=== PATIENT | male | born 1955 | race African-American/Black ===

== ENCOUNTER 2016-07-28 17:23 | Emergency (ER) | payer SELFPAY ==
[2016-07-28 18:02] VITALS: BP 150/94
== END 2016-07-29 01:29 | disposition left against medical advice (07) ==
LOC: ER 17:23
DX: Z53.21 Procedure and treatment not carried out due to patient leaving prior to being seen by health care provider (principal)

== ENCOUNTER 2016-08-08 11:04 | Emergency (ER) | payer SELFPAY ==
--- NOTE | 2016-08-08 12:13 | ER Document Report ---
ED Medical Screen (RME) - General Stated Complaint: MOUTH PAIN Notes: Patient reports right lower tooth broke off at the gumline about 2 days ago has pain and swelling to the area. He is also here because his blood pressure has been high, and he has been out of his medications for 2 weeks. No CP or SOB. Patient states he takes lisinopril 20 mg daily. I have greeted and performed a rapid initial assessment of this patient. A comprehensive ED assessment and evaluation of the patient, analysis of test results and completion of the medical decision making process will be conducted by additional ED providers. TRAVEL OUTSIDE OF THE [place] IN LAST 30 DAYS: No - Related Data Allergies/Adverse Reactions: No Known Allergies Allergy (Verified 05/12/16 09:06) Past Medical History - Past Medical History Cardiac Medical History: Reports: Hx Hypertension - Immunizations Immunizations up to date: Yes Hx Diphtheria, Pertussis, Tetanus Vaccination: Yes - 2011 Physical Exam - Vital signs Vitals: Temp Pulse Resp BP Pulse Ox 97.7 F 58 L 16 171/87 H 97 08/08/16 11:09 08/08/16 11:09 08/08/16 11:09 08/08/16 11:08/08/16 11:09 - HEENT Teeth diagram: 1 - broken tooth, + swelling to gums Notes: Patient has poor dentition with multiple teeth missing. Course - Vital Signs Vital signs: Temp Pulse Resp BP Pulse Ox 97.7 F 58 L 16 171/87 H 97 08/08/16 11:09 08/08/16 11:09 08/08/16 11:08/08/16 11:08/08/16 11:09
[2016-08-08] MEDS ORDERED: OXYCODONE-ACETAMINOPHEN 5-325 MG TABLET PO ONE (13:08)
[2016-08-08] MEDS ORDERED: PENICILLIN V POTASSIUM 500 MG TABLET PO ONE (13:08)
--- NOTE | 2016-08-08 13:11 | ER Document Report ---
HPI - HPI Patient complains to provider of: dental pain Onset: Other - 2 days Onset/Duration: Persistent Quality of pain: Achy Pain Level: 5 Context: Patient complains of dental pain to right lower jaw for the past 2 days. Patient states he had swelling and he took a needle and punctured an abscess yesterday which have a lot of purulent drainage. Patient denies any fever or facial swelling. Patient states he does have a dental appointment in 2 weeks. Patient additionally states that he is out of his blood pressure medicine for the past 2 weeks but does see a primary doctor the [facility]. Patient denies any chest pain, shortness of breath, urinary symptoms or visual problems. Associated Symptoms: Other - Dental pain. denies: Chest pain, Nonproductive cough, Productive cough, Nausea, Vomiting, Shortness of breath Exacerbated by: Denies Relieved by: Denies Similar symptoms previously: Yes Recently seen / treated by doctor: No - ROS ROS below otherwise negative: Yes Systems Reviewed and Negative: Yes All other systems reviewed and negative - CONSTITUTIONAL Constitutional: DENIES: Fever, Chills - EENT Notes: Dental pain - NEURO Neurology: DENIES: Headache, Weakness - CARDIOVASCULAR Cardiovascular: DENIES: Chest pain - RESPIRATORY Respiratory: DENIES: Trouble Breathing, Coughing - GASTROINTESTINAL Gastrointestinal: DENIES: Nausea, Patient vomiting - REPRODUCTIVE Reproductive: DENIES: : - MUSCULOSKELETAL Musculoskeletal: DENIES: Back Pain, Neck Pain - DERM Skin Color: Normal Skin Problems: None Past Medical History - General Information source: Patient - Social History Smoking Status: Current Every Day Smoker Chew tobacco use (# tins/day): No Frequency of alcohol use: Occasional Drug Abuse: Marijuana Occupation: none Family History: Hypertension Patient has suicidal ideation: No Patient has homicidal ideation: No - Past Medical History Cardiac Medical History: Reports: Hx Hypertension Renal/ Medical History: Denies: Hx Peritoneal Dialysis Surgical Hx: Negative - Immunizations Immunizations up to date: Yes Hx Diphtheria, Pertussis, Tetanus Vaccination: Yes - 2011 Hx Pneumococcal Vaccination: 03/29/13 Vertical Provider Document - CONSTITUTIONAL Agree With Documented VS: Yes Exam Limitations: No Limitations General Appearance: WD/WN, No Apparent Distress - INFECTION CONTROL TRAVEL OUTSIDE OF THE [place] IN LAST 30 DAYS: No - HEENT HEENT: Atraumatic, Normocephalic. negative: Pharyngeal Exudate, Pharyngeal Tenderness, Pharyngeal Erythema, Tympanic Membrane Red, Tympanic Membrane Bulging Mouth Diagram: 1 - Dental decay, tenderness, mild bleeding from around gingiva, no sublingual or submental swelling - NECK Neck: Normal Inspection, Supple. negative: Lymphadenopathy-Left, Lymphadenopathy-Right - RESPIRATORY Respiratory: Breath Sounds Normal, No Respiratory Distress, Chest Non-Tender O2 Sat by Pulse Oximetry: 97 - CARDIOVASCULAR Cardiovascular: Regular Rate, Regular Rhythm, No Murmur - BACK Back: Normal Inspection - MUSCULOSKELETAL/EXTREMETIES Musculoskeletal/Extremeties: MAEW - NEURO Level of Consciousness: Awake, Alert, Appropriate - DERM Integumentary: Warm, Dry, No Rash Course - Vital Signs Vital signs: Temp Pulse Resp BP Pulse Ox 97.7 F 58 L 16 171/87 H 97 08/08/16 11:09 08/08/16 11:09 08/08/16 11:09 08/08/16 11:09 08/08/16 11:09 Discharge - Discharge Clinical Impression: Dental caries, Toothache HTN (hypertension) Qualifiers: Hypertension type: essential hypertension Qualified Code(s): I10 - Essential ( primary) hypertension Condition: Stable Disposition: HOME, SELF-CARE Instructions: Penicillin V K ([facility]), Oral Narcotic Medication ([facility]), Toothache ( [facility]), Dentist, Dental Infection or Abscess ([facility]), High Blood Pressure ([facility]) Additional Instructions: Return immediately for any new or worsening symptoms Followup with your primary care provider, call tomorrow to make a followup appointment. Your primary doctor can refill your blood pressure medications Follow-up with your dentist for further evaluation. Prescriptions: Lisinopril [Prinivil] 20 mg PO DAILY #15 tablet Oxycodone HCl/Acetaminophen [Percocet 5-325 mg Tablet] 1 tab PO ASDIR PRN #15 tablet PRN Reason: Penicillin V Potassium [Penicillin Vk 500 mg Tablet] 500 mg PO BID #20 tablet Forms: Elevated Blood Pressure Referrals: [facility] [Provider Group] - Follow up in 3-5 days [facility] [Provider Group] - Follow up in 3-5 days
[2016-08-08 13:22] VITALS: BP 152/89
== END 2016-08-08 13:32 | disposition home or self-care (01) ==
LOC: ER 11:04
DX: K02.9 Dental caries, unspecified (principal); K08.89 Other specified disorders of teeth and supporting structures; I10 Essential (primary) hypertension; Z91.14 Patient's other noncompliance with medication regimen; F17.200 Nicotine dependence, unspecified, uncomplicated
CPT/HCPCS: 99282

== ENCOUNTER 2016-10-10 06:56 | Emergency (ER) | payer SELFPAY ==
[2016-10-10] MEDS ORDERED: PENICILLIN V POTASSIUM 500 MG TABLET PO ONE (09:47)
[2016-10-10] MEDS ORDERED: BUPIVACAINE HCL 0.5 % INJ/PF 30 ML SDV INJ ONE (09:47)
--- NOTE | 2016-10-10 09:56 | ER Document Report ---
HPI - HPI Patient complains to provider of: Toothache, right foot pain Pain Level: 4 Context: Patient is a 51-year-old male who presents emergency department complaining of left lower tooth pain as well is a growth on his right foot. Patient states that his tooth has been bothering him for the past 3-4 days. Denies any swelling, difficulty swallowing, difficulty breathing, chest pain, drooling, abnormal drainage or odor. Patient states that he has a history of a fractured tooth at this site he does have a follow-up appointment scheduled for October [facility] with [facility]. Patient denies any fevers or chills. In regards to his foot he states that there is a bump on the top of the foot that has been there for about 3 weeks. States intermittently it causes pain but otherwise he denies any injury or trauma. He has been able to ambulate without any difficulty. - REPRODUCTIVE Reproductive: DENIES: : - DERM Skin Color: Normal, [place] Past Medical History - Social History Smoking Status: Current Every Day Smoker Smoking Education Provided: Yes - less then 2 minutes Family History: Hypertension Patient has suicidal ideation: No Patient has homicidal ideation: No - Past Medical History Cardiac Medical History: Reports: Hx Hypertension Renal/ Medical History: Denies: Hx Peritoneal Dialysis - Immunizations Immunizations up to date: Yes Hx Diphtheria, Pertussis, Tetanus Vaccination: Yes - 2011 Hx Pneumococcal Vaccination: 03/29/13 Vertical Provider Document - CONSTITUTIONAL Agree With Documented VS: Yes Exam Limitations: No Limitations General Appearance: WD/WN, No Apparent Distress - INFECTION CONTROL TRAVEL OUTSIDE OF THE [place] IN LAST 30 DAYS: No - HEENT HEENT: Atraumatic, Normal ENT Exam, Normocephalic Mouth Diagram: 1 - dental Caries and poor dentition. 2 - Fractured tooth with gingival inflammation and tenderness to palpation. No evidence of abscess Notes: Uvula midline. Airway patent. No evidence of tonsillar enlargement, peritonsillar abscess, retropharyngeal abscess. - NECK Neck: Normal Inspection. negative: Lymphadenopathy-Left, Lymphadenopathy-Right - RESPIRATORY Respiratory: Breath Sounds Normal, No Respiratory Distress, Chest Non-Tender O2 Sat by Pulse Oximetry: 99 - CARDIOVASCULAR Cardiovascular: Regular Rate, Regular Rhythm, No Murmur Pulses: Normal: Posterior tibial, Dorsalis pedis - MUSCULOSKELETAL/EXTREMETIES Musculoskeletal/Extremeties: CHANELL GUTIERREZ, Non-Tender, No Edema Notes: End of a cyst on the top surface of the right foot. Soft nontender and mobile. Course - Re-evaluation Re-evalutation: 10/10/16 13:28 Patient is a 61-year-old male with a toothache and right foot pain. patient is hemodynamic stable, no acute distress afebrile. Patient received a 5 cc Sensorcaine submental block with complete resolution of his symptoms. Discharged with penicillin for dental prophylaxis and discuss to follow-up with the dentist as scheduled appointment. In regards to his right foot, the area is concerned with is a cyst. No evidence of inflammation or infection. Discussed with patient to use Motrin as needed and ice it limits uncomfortable but otherwise he can follow-up with primary care provider. - Vital Signs Vital signs: Temp Pulse Resp BP Pulse Ox 97.5 F 59 L 18 170/86 H 99 10/10/16 07:05 10/10/16 07:05 10/10/16 07:05 10/10/16 07:05 10/10/16 07:05 Discharge - Discharge Clinical Impression: Tooth ache, Cyst Condition: Good Disposition: HOME, SELF-CARE Instructions: [facility], Oral Narcotic Medication ([facility]), Toothache ([facility]), Penicillin V K ([facility]) Additional Instructions: [facility] [address] [place], [place] Thursday mornings, by appointment [facility] [address] [place] [address] [facility] [address] [facility]. [facility] [address] [facility] [address] [facility]. [facility] [address] [email or web address] [address] [place] [address] Thursday- 8:00am to 5:00 pm Will see patients from other [facility]. Charges based on income and family size and accepts Medicare, Medicaid, and Insurances Will pull molars [facility] [place]. [address] Hours of Operation 8:00 am - 4:30 pm weekdays The following dental offices accept Medicaid: [facility] Dr. Yuan Dr. Hicks Dr. Franco Dr. Harvey Franklyn Mccoy, [place], and [place] oral surgery Dr. Campos ([place]) Dr. Cai ([place]) [facility] Drs. Rico ([place]) Dr. Gramajo ([place]) [facility] Dr. Baumann ([place]) Drs. Balderrama and ([place]) Medicaid Care Line Prescriptions: Oxycodone HCl/Acetaminophen [Percocet 5-325 mg Tablet] 1 - 2 tab PO Q4H PRN #10 tablet PRN Reason: Penicillin V Potassium [Penicillin Vk 500 mg Tablet] 500 mg PO BID #20 tablet Forms: Elevated Blood Pressure Referrals: [facility] [Primary Care Provider] - Follow up as needed
[2016-10-10 10:27] VITALS: BP 168/84
== END 2016-10-10 10:26 | disposition home or self-care (01) ==
LOC: ER 06:56
PROC: 3E0T3BZ Introduction of Anesthetic Agent into Peripheral Nerves and Plexi, Percutaneous Approach (ICD-10-PCS; principal; 2016-10-10)
DX: K08.9 Disorder of teeth and supporting structures, unspecified (principal); L72.9 Follicular cyst of the skin and subcutaneous tissue, unspecified; M79.671 Pain in right foot; F17.200 Nicotine dependence, unspecified, uncomplicated; I10 Essential (primary) hypertension
CPT/HCPCS: 99283

== ENCOUNTER 2016-10-31 05:05 | Emergency (ER) | payer SELFPAY ==
[2016-10-31 05:10] VITALS: BP 170/84
--- NOTE | 2016-10-31 06:25 | ER Document Report ---
ED General - General Chief Complaint: Foot Pain Stated Complaint: FOOT AND ANKLE SWELLING Time Seen by Provider: 10/31/16 06:12 TRAVEL OUTSIDE OF THE [place] IN LAST 30 DAYS: No - HPI Patient complains to provider of: Foot pain Notes: Patient coming in today complaining of foot pain. But states ongoing for some time since last time she was seen here is recommend follow-up with group rooms coordinator patient states very painful when ambulating unable to work. Patient denies any other trauma - Related Data Allergies/Adverse Reactions: ibuprofen [From Motrin] Adverse Reaction (Verified 10/31/16 06:48) Vomiting tramadol Adverse Reaction (Verified 10/31/16 06:48) Vomiting Past Medical History - Social History Smoking Status: Unknown if Ever Smoked Family History: Hypertension Patient has suicidal ideation: No Patient has homicidal ideation: No - Past Medical History Cardiac Medical History: Reports: Hx Hypertension Renal/ Medical History: Denies: Hx Peritoneal Dialysis - Immunizations Immunizations up to date: Yes Hx Diphtheria, Pertussis, Tetanus Vaccination: Yes - 2011 Hx Pneumococcal Vaccination: 03/29/13 Review of Systems - Review of Systems Constitutional: Other - Pain EENT: No symptoms reported Cardiovascular: No symptoms reported Respiratory: No symptoms reported Gastrointestinal: No symptoms reported Genitourinary: No symptoms reported Male Genitourinary: No symptoms reported Musculoskeletal: No symptoms reported Skin: No symptoms reported Hematologic/Lymphatic: No symptoms reported Neurological/Psychological: No symptoms reported Physical Exam - Vital signs Vitals: Temp Pulse Resp BP Pulse Ox 97.6 F 63 16 170/84 H 96 10/31/16 05:09 10/31/16 05:09 10/31/16 05:09 10/31/16 05:10/31/16 05:09 Interpretation: Normal - General General appearance: Appears well, Alert - HEENT Head: Normocephalic, Atraumatic Eyes: Normal Pupils: PERRL - Respiratory Respiratory status: No respiratory distress Chest status: Nontender Breath sounds: Normal Chest palpation: Normal - Cardiovascular Rhythm: Regular Heart sounds: Normal auscultation Murmur: No - Abdominal Inspection: Normal Distension: No distension Bowel sounds: Normal Tenderness: Nontender Organomegaly: No organomegaly - Back Back: Normal, Nontender - Extremities General upper extremity: Normal inspection, Nontender, Normal color, Normal ROM , Normal temperature General lower extremity: Nontender, Normal color, Normal ROM, Normal temperature , Normal weight bearing. No: Normal inspection - Right foot on the dorsum has a cyst in the middle of the foot freely mobile consistent with a ganglion cyst no signs of infection or cellulitis non-erythematous, Em's sign - Neurological Neuro grossly intact: Yes Cognition: Normal Orientation: AAOx4 [place] Coma Scale Eye Opening: Spontaneous [place] Coma Scale Verbal: Oriented [place] Coma Scale Motor: Obeys Commands [place] Coma Scale Total: 15 Speech: Normal Motor strength normal: LUE, RUE, LLE, RLE Sensory: Normal - Psychological Associated symptoms: Normal affect, Normal mood - Skin Skin Temperature: Warm Skin Moisture: Dry Skin Color: Normal Course - Re-evaluation Re-evalutation: 10/31/16 14:41 Patient coming in for evaluation of foot pain. Patient was to have a ganglion cyst. Patient was encouraged follow-up with orthopedics. - Vital Signs Vital signs: Temp Pulse Resp BP Pulse Ox 97.6 F 63 16 170/84 H 96 10/31/16 05:09 10/31/16 05:09 10/31/16 05:09 10/31/16 05:09 10/31/16 05:09 Discharge - Discharge Clinical Impression: Ganglion cyst Condition: Good Disposition: HOME, SELF-CARE Instructions: Ganglion Cyst ([facility]) Additional Instructions: Your exam this am shows a ganglion cyst on the the top of the foot. This is a benign cyst. Most the time we treat the cyst with anti-inflammatory medication and compression. He may follow-up with orthopedic doctor provided can surgically remove the cyst or inject the cyst with hydrocortisone. Prescriptions: Hydrocodone Bit/Acetaminophen [Hydrocodon-Acetaminophen 5-325] 1 each PO Q6 #20 tablet Ibuprofen [Motrin 600 Mg Tablet] 600 mg PO TID #30 tablet Forms: Return to Work Referrals: PAUL LYNN DO [ACTIVE STAFF] - Follow up as needed
== END 2016-10-31 06:52 | disposition home or self-care (01) ==
LOC: ER 05:05
DX: M67.40 Ganglion, unspecified site (principal); M79.673 Pain in unspecified foot; M79.89 Other specified soft tissue disorders
CPT/HCPCS: 99283

== ENCOUNTER 2016-12-07 10:59 | Emergency (ER) | payer SELFPAY ==
[2016-12-07 11:04] VITALS: BP 137/94
[2016-12-07] MEDS ORDERED: OXYCODONE-ACETAMINOPHEN 5-325 MG TABLET PO ONE (11:27)
--- NOTE | 2016-12-07 11:31 | ER Document Report ---
HPI - HPI Pain Level: 5 Context: 61 yo male c/o pain to left lower gum. Associated Symptoms: None Exacerbated by: Food Relieved by: Denies Similar symptoms previously: Yes Recently seen / treated by doctor: No - ROS Systems Reviewed and Negative: Yes All other systems reviewed and negative - REPRODUCTIVE Reproductive: DENIES: : - DERM Skin Color: Normal Past Medical History - General Information source: Patient - Social History Smoking Status: Former Smoker Frequency of alcohol use: None Drug Abuse: None Lives with: Alone Family History: Hypertension - Past Medical History Cardiac Medical History: Reports: Hx Hypertension Renal/ Medical History: Denies: Hx Peritoneal Dialysis - Immunizations Immunizations up to date: Yes Hx Diphtheria, Pertussis, Tetanus Vaccination: Yes - 2011 Hx Pneumococcal Vaccination: 03/29/13 Vertical Provider Document - CONSTITUTIONAL Exam Limitations: No Limitations - INFECTION CONTROL TRAVEL OUTSIDE OF THE [place] IN LAST 30 DAYS: No - HEENT HEENT: Atraumatic Mouth Diagram: 1 - broken tooth, + gingival swelling and bleeding Notes: advanced decay and gingivitis - NECK Neck: Normal Inspection, Supple - RESPIRATORY Respiratory: Breath Sounds Normal, No Respiratory Distress O2 Sat by Pulse Oximetry: 98 - CARDIOVASCULAR Cardiovascular: Regular Rate, Regular Rhythm - MUSCULOSKELETAL/EXTREMETIES Musculoskeletal/Extremeties: Tender - cystic mass to mid dorsal right foot - NEURO Level of Consciousness: Awake, Alert, Appropriate - DERM Integumentary: Warm, Dry Course - Re-evaluation Re-evalutation: 12/07/16 11:31 H&P c/w dental infection no s/s chico's, no airway involvement. will treat patient with oral antibiotic and pain med an dhave patient follow up with dental for further evaluation and treatment - Vital Signs Vital signs: Temp Pulse Resp BP Pulse Ox 97.4 F 55 L 18 137/94 H 98 12/07/16 11:02 12/07/16 11:02 12/07/16 11:02 12/07/16 11:02 12/07/16 11:02 Discharge - Discharge Clinical Impression: Dental infection Condition: Stable Disposition: HOME, SELF-CARE Instructions: Toothache ([facility]), Antibiotic Therapy ([facility]), Oral Narcotic Medication ([facility]) Additional Instructions: Take medications as prescribed Follow up with dental for further evaluation and treatment Prescriptions: Oxycodone HCl/Acetaminophen [Percocet 5-325 mg Tablet] 1 - 2 tab PO ASDIR PRN # 15 tablet PRN Reason: Penicillin V Potassium [Penicillin Vk 500 mg Tablet] 500 mg PO BID #20 tablet Forms: Elevated Blood Pressure
== END 2016-12-07 11:52 | disposition home or self-care (01) ==
LOC: ER 10:59
DX: K04.7 Periapical abscess without sinus (principal); K13.79 Other lesions of oral mucosa
CPT/HCPCS: 99283

== ENCOUNTER 2016-12-28 07:40 | Emergency (ER) | payer SELFPAY ==
[2016-12-28 07:54] VITALS: BP 148/82
--- NOTE | 2016-12-28 08:35 | ER Document Report ---
HPI - HPI Patient complains to provider of: toothache Pain Level: 5 Notes: Patient is a 61-year-old male presents the ED complaining of left lower dental pain 1 month. Patient states that it was an abscess a few days ago, but patient drained it. Patient states that he is still eating and drinking without difficulties. Patient states that he is set up for an appointment with a dentist on the . Patient complains of the chronic cyst to his dorsal right foot, but patient states that he has a referral pending for podiatry. No other concerns or complaints. Past medical history significant for hypertension. Denies any headache, fever, neck pain/stiffness, URI, sore throat , chest pain, palpitations, syncope, cough, shortness of breath, wheeze, dyspnea , abdominal pain, nausea/vomiting/diarrhea, dysuria, hematuria, or rash. - ROS Notes: REVIEW OF SYSTEMS: CONSTITUTIONAL : Denies fever, chills, or sweats. Denies recent illness. EENT: Denies eye, ear, throat pain or symptoms. Denies nasal or sinus congestion or discharge. Denies throat, tongue, or mouth swelling or difficulty swallowing. see hpi CARDIOVASCULAR: Denies chest pain. Denies palpitations or racing or irregular heart beat. Denies ankle edema. RESPIRATORY: Denies cough, cold, or chest congestion. Denies shortness of breath, difficulty breathing, or wheezing. GASTROINTESTINAL: Denies abdominal pain or distention. Denies nausea, vomiting , or diarrhea. Denies blood in vomitus, stools, or per rectum. Denies black, tarry stools. Denies constipation. GENITOURINARY: Denies difficulty urinating, painful urination, burning, frequency, blood in urine, or discharge. MUSCULOSKELETAL: see hpi SKIN: Denies rash, lesions or sores. NEUROLOGICAL: Denies confusion or altered mental status. Denies passing out or loss of consciousness. Denies dizziness or lightheadedness. Denies headache. Denies weakness or paralysis or loss of use of either side. Denies problems with gait or speech. Denies sensory loss, numbness, or tingling. ALL OTHER SYSTEMS REVIEWED AND NEGATIVE. Dictation was performed using [employer] voice recognition software - REPRODUCTIVE Reproductive: DENIES: : - DERM Skin Color: Normal Past Medical History - Social History Smoking Status: Current Every Day Smoker Chew tobacco use (# tins/day): No Frequency of alcohol use: None Drug Abuse: None Family History: Hypertension Patient has suicidal ideation: No Patient has homicidal ideation: No - Past Medical History Cardiac Medical History: Reports: Hx Hypertension Renal/ Medical History: Denies: Hx Peritoneal Dialysis - Immunizations Immunizations up to date: Yes Hx Diphtheria, Pertussis, Tetanus Vaccination: Yes - 2011 Hx Pneumococcal Vaccination: 03/29/13 Vertical Provider Document - CONSTITUTIONAL Agree With Documented VS: Yes Notes: PHYSICAL EXAMINATION: GENERAL: Well-appearing, well-nourished and in no acute distress. HEAD: Atraumatic, normocephalic. EYES: Pupils equal round and reactive to light, extraocular movements intact, sclera anicteric, conjunctiva are normal. ENT: EAC clear b/l. TM's intact b/l without erythema, fluid, or perforation. Nares patent and without discharge. oropharynx clear without exudates. No tonsilar hypertrophy or erythema. Moist mucous membranes. No sinus tenderness. Uvula midline. No palatine shift. Mouth: Poor dentition throughout, missing teeth throughout. Denture placement upper/lower (around remaining teeth). + mild erythema/gingivitis to the left lower molar approx #22. + tenderness to palpation. No tongue protrusion. NECK: Normal range of motion, supple without lymphadenopathy. No rigidity/ meningismus. LUNGS: Breath sounds clear to auscultation bilaterally and equal. No wheezes rales or rhonchi. HEART: Regular rate and rhythm without murmurs, rubs, gallops. Musculoskeletal: Rt foot ankle: FROM to passive/active. Strength 5+/5. + ganglion cyst to the dorsal rt foot. N/V intact. + mild tenderness to palp of the cyst. Extremities: No cyanosis, clubbing, or edema b/l. Peripheral pulses 2+. Capillary refill less than 3 seconds. NEUROLOGICAL: Cranial nerves grossly intact. Normal speech, normal gait. Normal sensory, motor exams PSYCH: Normal mood, normal affect. SKIN: Warm, Dry, normal turgor, no rashes or lesions noted. - INFECTION CONTROL TRAVEL OUTSIDE OF THE [place] IN LAST 30 DAYS: No - RESPIRATORY O2 Sat by Pulse Oximetry: 97 Course - Re-evaluation Re-evalutation: 12/28/16 08:32 Patient is an afebrile, well-hydrated, 61-year-old male who presents the ED with a toothache and ganglion cyst. I will cover him with clindamycin TID10 days. Patient is already scheduled for an appointment with his dentist. Reviewed the risks and benefits of available treatment for the ganglion cyst. Is agreed upon that he is to continue follow-up with podiatry as scheduled for excision. Low suspicion for any peritonsilar/pharyngeal abscess, respiratory compromise, sepsis, meningitis, Ludwigs, septic joint, based on visit today. Patient is aware the condition can change from initial presentation and he needs to monitor symptoms closely and seek medical attention if any acute changes. Conservative measures otherwise for symptoms. Recheck with your PCM this week. Return to ED with any worsening/concerning symptoms otherwise as reviewed discharge. Patient is in agreement. - Vital Signs Vital signs: Temp Pulse Resp BP Pulse Ox 97.9 F 57 L 12 148/82 H 97 12/28/16 07:48 12/28/16 07:48 12/28/16 08:16 12/28/16 07:48 12/28/16 07:48 Discharge - Discharge Clinical Impression: Toothache, Ganglion cyst of foot Condition: Stable Disposition: HOME, SELF-CARE Instructions: [facility], Clindamycin ([facility]), Toothache ([facility]), Ganglion Cyst ([facility]) Additional Instructions: [place] and floss twice daily Maintain fluid intake Take antibiotics as directed Mouthwash, salt water gargles, peroxide rinse as needed Tylenol as needed Recheck with PCM this week Keep consult as scheduled with your dentist and keep consult with aircraft stress analyst warm/cool compresses may help Return to the ED with any worsening symptoms and/or development of fever, headache, facial swelling, swelling of lips/tongue/throat, trouble swallowing, drooling, hoarseness, neck pain/stiffness, chest pain, palpitations, syncope, shortness of breath, trouble breathing, abdominal pain, n/v/d, numbness/tingling , or other worsening symptoms that are concerning to you. Prescriptions: Clindamycin HCl [Cleocin 300 mg Capsule] 300 mg PO TID #30 capsule Referrals: [facility] [Provider Group] - Follow up as needed
== END 2016-12-28 08:48 | disposition home or self-care (01) ==
LOC: ER 07:40
DX: K08.89 Other specified disorders of teeth and supporting structures (principal); M67.471 Ganglion, right ankle and foot; K05.10 Chronic gingivitis, plaque induced; F17.200 Nicotine dependence, unspecified, uncomplicated; I10 Essential (primary) hypertension
CPT/HCPCS: 99283

== ENCOUNTER 2017-03-11 04:21 | Emergency (ER) | payer MEDICAID ==
[2017-03-11 04:28] VITALS: BP 131/83
[2017-03-11] MEDS ORDERED: CLINDAMYCIN HCL 150 MG CAPSULE PO ONE (05:03)
[2017-03-11] MEDS ORDERED: HYDROCODONE/ACETAMINOPHEN 5-325 MG TABLET PO ONE (05:04)
--- NOTE | 2017-03-11 05:10 | ER Document Report ---
ED General - General Chief Complaint: Mouth Problem Stated Complaint: MOUTH IRRITATION Time Seen by Provider: 03/11/17 04:56 Notes: Patient is a 62-year-old male who presents with a complaint of a sore and pain to the left side of his tongue. Patient has dentures in place. He says he he had placed too much denture cream and when he removed his dentures he thinks he may have became caught on the underside of his tongue causing injury. He denies any difficulty breathing. No difficulty swallowing. No fevers. No other complaints. TRAVEL OUTSIDE OF THE [place] IN LAST 30 DAYS: No - Related Data Allergies/Adverse Reactions: ibuprofen [From Motrin] Adverse Reaction (Verified 12/07/16 11:02) Vomiting tramadol Adverse Reaction (Verified 12/07/16 11:02) Vomiting Home Medications: Current Home Medications Aspirin [Aspirin EC] 81 mg PO DAILY 03/11/17 [History] Lisinopril 20 mg PO DAILY 03/11/17 [History] Past Medical History - Social History Smoking Status: Current Every Day Smoker Chew tobacco use (# tins/day): No Frequency of alcohol use: None Drug Abuse: None Family History: Reviewed & Not Pertinent, Hypertension Patient has suicidal ideation: No Patient has homicidal ideation: No - Past Medical History Cardiac Medical History: Reports: Hx Hypertension Renal/ Medical History: Denies: Hx Peritoneal Dialysis Past Surgical History: Reports: Hx Oral Surgery - Immunizations Immunizations up to date: Yes Hx Diphtheria, Pertussis, Tetanus Vaccination: Yes - 2011 Hx Pneumococcal Vaccination: 03/29/13 Review of Systems - Review of Systems Notes: My Normal Review Basic REVIEW OF SYSTEMS: CONSTITUTIONAL : Denies fever, chills, or sweats. Denies recent illness. EENT: Irritation to the left underside of the tongue.. RESPIRATORY: Denies cough, cold, or chest congestion. Denies shortness of breath, difficulty breathing, or wheezing. MUSCULOSKELETAL: Denies neck or back pain or joint pain or swelling. SKIN: Denies rash or skin lesions. NEUROLOGICAL: Denies altered mental status or loss of consciousness. Denies headache. Denies weakness or paralysis or loss of use of either side. Denies problems with gait or speech. Denies sensory or motor loss. ALL OTHER SYSTEMS REVIEWED AND NEGATIVE. Physical Exam - Vital signs Vitals: Temp Pulse Resp BP Pulse Ox 97.3 F 79 18 131/83 H 97 03/11/17 04:24 03/11/17 04:24 03/11/17 04:24 03/11/17 04:24 03/11/17 04:24 - Notes Notes: General Appearance: Well nourished, alert, cooperative, no acute distress, mild to moderate obvious discomfort. Well-appearing Vitals: reviewed, See vital signs table. Head: no swelling or tenderness to the head Eyes: PERRL, EOMI, Conjuctiva clear Mouth: Patient has a small oral laceration under the left side of the tongue followed by some irritation and slight redness. No significant swelling. No nothing to suggest ongoing infection. Irritation looks more consistent with traumatic injury. Patient is able with the tongue without difficulty. Is able to open and close his mouth without difficulty. He has no signs of airway compromise. Throat: No tonsillar inflammation, No airway obstruction, No lymphadenopathy Neck: Supple, no neck tenderness, No swelling of the neck. Skin: warm, dry, appropriate color, no rash Neuro: speech clear, oriented x 3, normal affect, responds appropriately to questions. Course - Re-evaluation Re-evalutation: 03/11/17 05:21 I suspect the patient most likely is a traumatic injury from his dentures. I will place him on antibiotic to help keep the area from becoming infected. I will give her Magic mouthwash to help with the pain. Encouraged to return to the ER immediately if he has any swelling or or increasing irritation underneath his tongue, any difficulty breathing, or difficulty swallowing. I given the name of the ENT physician for follow-up and informed him to follow-up with ENT physician if he still having any irritation or pain after 5 days. Patient agrees with plan will be discharged home. Dictation of this chart was performed using voice recognition software; therefore, there may be some unintended grammatical errors. - Vital Signs Vital signs: Temp Pulse Resp BP Pulse Ox 97.3 F 79 18 131/83 H 97 03/11/17 04:24 03/11/17 04:24 03/11/17 04:24 03/11/17 04:24 03/11/17 04:24 Discharge - Discharge Clinical Impression: Injury of oral cavity Qualifiers: Encounter type: initial encounter Qualified Code(s): S09.93XA - Unspecified injury of face, initial encounter Condition: Good Disposition: HOME, SELF-CARE Additional Instructions: Please take the medication as prescribed. Please return to the ER immediately if you have increased swelling in your mouth, fevers, difficulty breathing, or difficulty swallowing. Please eat only soft foods and always rinse your mouth with water after eating. Please follow up with the ENT doctor (Dr. Smith) if you are still having pain in the area after 5 days. Prescriptions: Clindamycin HCl 300 mg PO ASDIR #56 capsule Nystatin/Dexameth/Diphen [Magic Mouthwash ([facility] Formula) Susp] 5 ml PO QID #120 ml Forms: Special Work Note, Return to Work Referrals: GIULIA SMITH DO [ASSOCIATE] - Follow up in 1 week
== END 2017-03-11 05:13 | disposition home or self-care (01) ==
LOC: ER 04:21
DX: S01.512A Laceration without foreign body of oral cavity, initial encounter (principal); X58.XXXA Exposure to other specified factors, initial encounter; F17.200 Nicotine dependence, unspecified, uncomplicated; I10 Essential (primary) hypertension
CPT/HCPCS: 99282

== ENCOUNTER 2017-04-29 06:49 | Emergency (ER) | payer MEDICAID ==
[2017-04-29] MEDS ORDERED: DIPH/PERTUSS(ACELL)/TETANUS VAC/PF 0.5 ML SYR (>=10YO) IM ONE (07:13)
[2017-04-29] MEDS ORDERED: TETRACAINE HCL 0.5% OPH SOLN 2 ML OS ONE (07:13)
--- NOTE | 2017-04-29 07:43 | ER Document Report ---
HPI - HPI Pain Level: 5 Notes: Patient is a 62-year-old male who presents ED complaining of possible foreign body to the left eye x1 day. Patient states he is not sure if a piece of metal got in his eye or another substance. Patient states that he did rinse his eye out and feels an irritation to the left eye with occasional watery discharge. Patient states that the irritation is medial, and has not noticed any changes in his vision. Patient states that his symptoms are tolerable, but wanted to get checked as precautionary. No other concerns or complaints at this time. Denies any other recent illness. Denies any headache, fever, head injury, neck pain, URI, sore throat, chest pain, palpitations, syncope, cough, shortness of breath, wheeze, dyspnea, abdominal pain, nausea/vomiting/diarrhea, urinary retention, dysuria, hematuria, or rash. Pt does not wear contacts. last tetanus unknown. - ROS Notes: REVIEW OF SYSTEMS: CONSTITUTIONAL : Denies fever, chills, or sweats. Denies recent illness. EENT: see hpi. CARDIOVASCULAR: Denies chest pain. Denies palpitations or racing or irregular heart beat. RESPIRATORY: Denies cough, cold, or chest congestion. Denies shortness of breath, difficulty breathing, or wheezing. GASTROINTESTINAL: Denies abdominal pain or distention. Denies nausea, vomiting , or diarrhea. GENITOURINARY: Denies difficulty urinating, painful urination, burning, frequency, blood in urine, or discharge. MUSCULOSKELETAL: Denies back or neck pain or stiffness. Denies joint pain or swelling. SKIN: Denies rash, lesions or sores. NEUROLOGICAL: Denies confusion or altered mental status. Denies passing out or loss of consciousness. Denies dizziness or lightheadedness. Denies headache. Denies weakness or paralysis or loss of use of either side. Denies problems with gait or speech. Denies sensory loss, numbness, or tingling. ALL OTHER SYSTEMS REVIEWED AND NEGATIVE. Dictation was performed using [employer] voice recognition software - REPRODUCTIVE Reproductive: DENIES: : Past Medical History - Social History Smoking Status: Unknown if Ever Smoked Family History: Hyperlipidemia, Hypertension. denies: Arthritis, CAD, COPD, CVA , DM, Malignancy, Thyroid Disfunction - Past Medical History Cardiac Medical History: Reports: Hx Hypertension Renal/ Medical History: Denies: Hx Peritoneal Dialysis Past Surgical History: Reports: Hx Oral Surgery - Immunizations Immunizations up to date: Yes Hx Diphtheria, Pertussis, Tetanus Vaccination: Yes - 2011 Hx Pneumococcal Vaccination: 03/29/13 Vertical Provider Document - CONSTITUTIONAL Agree With Documented VS: Yes Notes: PHYSICAL EXAMINATION: GENERAL: Well-appearing, well-nourished and in no acute distress. A&Ox4 HEAD: Atraumatic, normocephalic. EYES: Pupils equal round and reactive to light, extraocular movements intact, sclera anicteric, conjunctiva left eye minimally injected medially. Flourescein/wood's lamp: + small abrasion medially w/o suraj sign. No other uptake noted. No obvious foreign body. ENT: EAC clear b/l. TM's intact b/l without erythema, fluid, or perforation. Nares patent and without discharge. oropharynx clear without exudates. No tonsilar hypertrophy or erythema. Moist mucous membranes. NECK: Normal range of motion, supple without lymphadenopathy LUNGS: Breath sounds clear to auscultation bilaterally and equal. No wheezes rales or rhonchi. HEART: Regular rate and rhythm without murmurs, rubs, gallops. Musculoskeletal: FROM to passive/active. Strength 5+/5. Extremities: No cyanosis, clubbing, or edema b/l. Peripheral pulses 2+. Capillary refill less than 3 seconds. NEUROLOGICAL: cranial nerves 2-12 intact. Normal speech, normal gait. Normal sensory, motor exams PSYCH: Normal mood, normal affect. SKIN: Warm, Dry, normal turgor, no rashes or lesions noted. - INFECTION CONTROL TRAVEL OUTSIDE OF THE [place] IN LAST 30 DAYS: No - RESPIRATORY O2 Sat by Pulse Oximetry: 97 Course - Re-evaluation Re-evalutation: 04/29/17 07:43 Patient is an afebrile, well-hydrated, 62-year-old male who presents the ED with an abrasion to his left eye w/o evidence of foreign body. Vitals are stable. PE is otherwise unremarkable. Low suspicion for any retained corneal or lid foreign body, deep space infection including orbital cellulitis/abscess, acute glaucoma, penetrating globe injury, retinal detachment, meningitis, sepsis , fracture, compartment syndrome. I will send home with a prescription for Polytrim to use as directed. Conservative measures otherwise for symptoms with proper handwashing. Recheck with your PCM in 3-5 days. Schedule a f/u with Ophthalmology next week. Return to the ED with any worsening/concerning symptoms otherwise as reviewed in discharge. Patient is in agreement. - Vital Signs Vital signs: Temp Pulse Resp BP Pulse Ox 97.3 F 56 L 16 141/87 H 97 04/29/17 07:03 04/29/17 07:03 04/29/17 07:03 04/29/17 07:03 04/29/17 07:03 Procedures - Eye Procedure Left Time completed: 07:40 Eye Irrigated w/ Saline (ccs): 20 Alcaine Drops Administered: Yes - tetracaine Fluorescein applied: Left - + small abrasion, no suraj or other uptake noted. Notes: 04/29/17 07:51 Wood's lamp utilized No obvious foreign body. Pt did have resolution of symptoms to the left eye with the tetracaine drops Discharge - Discharge Clinical Impression: Corneal abrasion, left Qualifiers: Encounter type: initial encounter Qualified Code(s): S05.02XA - Injury of conjunctiva and corneal abrasion without foreign body, left eye, initial encounter Condition: Stable Disposition: HOME, SELF-CARE Instructions: Corneal Abrasion ([facility]) Additional Instructions: keep eyes clean Avoid scratching/touching eyes Wash hands regularly Use eye drops as directed Maintain adequate fluid intake tylenol/ibuprofen as needed over the counter cold medication as needed for symptoms F/u: with your PCM in 3-5 days for a recheck Consider consult with Ophthalmology for ongoing/worsening symptoms x2 days Return to the ED with any worsening symptoms and/or development of fever, headache, changes in vision, eye pain, worsening eye redness, redness around the eyes, purulent discharge, sore throat, facial swelling, neck pain/stiffness , chest pain, palpitations, syncope, shortness of breath, trouble breathing, abdominal pain, n/v/d, blood in stool/urine, dysuria, or other worsening symptoms that are concerning to you. Prescriptions: Polymyxin B Sulf/Trimethoprim [Polytrim Eye Drops] 1 drop OS Q3H #10 ml Forms: Elevated Blood Pressure Referrals: ISIDRA SPENCER DO [ACTIVE STAFF] - 05/01/17
[2017-04-29 08:12] VITALS: BP 126/87
== END 2017-04-29 08:12 | disposition home or self-care (01) ==
LOC: ER 06:49
DX: S05.02XA Injury of conjunctiva and corneal abrasion without foreign body, left eye, initial encounter (principal); H57.12 Ocular pain, left eye; W22.8XXA Striking against or struck by other objects, initial encounter
CPT/HCPCS: 99283; 90471; 90715; J3490

== ENCOUNTER 2017-05-16 07:30 | Inpatient (IN) | payer MEDICAID ==
--- NOTE | 2017-05-16 08:01 | EKG REPORT ---
SEVERITY:- ABNORMAL ECG - SINUS RHYTHM NONSPECIFIC INTRAVENTRICULAR CONDUCTION DELAY : Confirmed by: Adeel Huddleston MD 16-May-2017 08:00:22
--- NOTE | 2017-05-16 08:05 | ER Document Report ---
ED General - General Chief Complaint: Chest Pain Stated Complaint: CHEST PAIN Time Seen by Provider: 05/16/17 07:48 Mode of Arrival: Ambulatory Information source: Patient Notes: 62 yr old male presents with one-week duration of sharp chest pain. Patient denies any fevers or chills denies any nausea vomiting or diarrhea. Patient admits to a cough with the pain. pt notes he has chronic back pain, chronic right arm pain. pt notes he drank last night and smoke marjuana. Pt denies any cocaine use. Pt is on lisinopril for htn. TRAVEL OUTSIDE OF THE [place] IN LAST 30 DAYS: No - HPI Onset: Last week Onset/Duration: Intermittent Quality of pain: Sharp Severity: Mild Pain Level: 1 Associated symptoms: Chest pain Exacerbated by: Denies Relieved by: Denies Similar symptoms previously: No Recently seen / treated by doctor: No - Related Data Allergies/Adverse Reactions: ibuprofen [From Motrin] Adverse Reaction (Verified 05/16/17 08:21) Vomiting tramadol Adverse Reaction (Verified 05/16/17 08:21) Vomiting Past Medical History - Social History Smoking Status: Never Smoker Cigarette use (# per day): No Chew tobacco use (# tins/day): No Smoking Education Provided: No Family History: Hyperlipidemia, Hypertension. denies: Arthritis, CAD, COPD, CVA , DM, Malignancy, Thyroid Disfunction - Past Medical History Cardiac Medical History: Reports: Hx Hypertension Renal/ Medical History: Denies: Hx Peritoneal Dialysis Past Surgical History: Reports: Hx Oral Surgery - Immunizations Immunizations up to date: Yes Hx Diphtheria, Pertussis, Tetanus Vaccination: Yes - 2011 Hx Pneumococcal Vaccination: 03/29/13 Review of Systems - Review of Systems Notes: REVIEW OF SYSTEMS: CONSTITUTIONAL : Denies fever, chills, or sweats. Denies recent illness. EENT: Denies eye, ear, throat, or mouth pain or symptoms. Denies nasal or sinus congestion or discharge. Denies throat, tongue, or mouth swelling or difficulty swallowing. CARDIOVASCULAR: admits to chest pain RESPIRATORY: admits to sob GASTROINTESTINAL: Denies abdominal pain or distention. Denies nausea, vomiting , or diarrhea. Denies blood in vomitus, stools, or per rectum. Denies black, tarry stools. Denies constipation. GENITOURINARY: Denies difficulty urinating, painful urination, burning, frequency, blood in urine, or discharge. MUSCULOSKELETAL: admits to right arm pain and back pain SKIN: Denies rash, lesions or sores. HEMATOLOGIC : Denies easy bruising or bleeding. LYMPHATIC: Denies swollen, enlarged glands. NEUROLOGICAL: Denies confusion or altered mental status. Denies passing out or loss of consciousness. Denies dizziness or lightheadedness. Denies headache. Denies weakness or paralysis or loss of use of either side. Denies problems with gait or speech. Denies sensory loss, numbness, or tingling. Denies seizures. PSYCHIATRIC: Denies anxiety or stress. Denies depression, suicidal ideation, or homicidal ideation. ALL OTHER SYSTEMS REVIEWED AND NEGATIVE. Dictation was performed using [employer] voice recognition software PHYSICAL EXAMINATION: GENERAL: Well-appearing, well-nourished and in no acute distress. HEAD: Atraumatic, normocephalic. EYES: Pupils equal round and reactive to light, extraocular movements intact, sclera anicteric, conjunctiva are normal. ENT: Nares patent, oropharynx clear without exudates. Moist mucous membranes. NECK: Normal range of motion, supple without lymphadenopathy LUNGS: Breath sounds clear to auscultation bilaterally and equal. No wheezes rales or rhonchi. HEART: Regular rate and rhythm without murmurs ABDOMEN: Soft, nontender, nondistended abdomen. No guarding, no rebound. No masses appreciated. Musculoskeletal: Normal range of motion, no pitting or edema. No cyanosis. NEUROLOGICAL: Cranial nerves grossly intact. Normal speech, normal gait. Normal sensory, motor exams PSYCH: Normal mood, normal affect. SKIN: Warm, Dry, normal turgor, no rashes or lesions noted. Physical Exam - Vital signs Vitals: Temp Pulse Resp BP Pulse Ox 97.5 F 70 20 159/85 H 95 05/16/17 07:35 05/16/17 07:35 05/16/17 07:35 05/16/17 07:35 05/16/17 07:35 Course - Re-evaluation Re-evalutation: 05/16/17 08:42 Patient's chest pain only occurs when he coughs, he does not have any pressure sensation or chest pain otherwise. He denies any DVT or PE risk factors however CTA has been ordered given the pleuritic nature of the pain 05/16/17 09:24 Patient's drug screen is positive for cocaine 05/16/17 10:42 Pt prior ot my explanation of drug screen admits to cocaine use last night since he was having back pain and ran out of pain medication. due ot this history i am more concerned about his heart, will observe - Vital Signs Vital signs: Temp Pulse Resp BP Pulse Ox 97.5 F 70 18 131/81 H 97 05/16/17 07:35 05/16/17 07:35 05/16/17 09:01 05/16/17 09:01 05/16/17 09:01 - Laboratory Result Diagrams: 05/16/17 08:11 05/16/17 08:11 Laboratory results interpreted by me: 05/16/17 05/16/17 05/16/17 08:11 08:11 08:34 RBC 3.89 L Hgb 12.7 L Hct 37.5 L Chloride 108 H BUN 21 H Glucose 115 H ALT 20 L Urine Protein 30 H Urine Urobilinogen 4.0 H Urine Ascorbic Acid 40 H - Diagnostic Test Radiology reviewed: Image reviewed, Reports reviewed - EKG Interpretation by Me EKG shows normal: Sinus rhythm, [place], Intervals, QRS Complexes Discharge - Discharge Clinical Impression: Cocaine abuse Chest pain Qualifiers: Chest pain type: unspecified Qualified Code(s): R07.9 - Chest pain, unspecified Condition: Stable Disposition: ADMITTED OBSERVATION Admitting Provider: Hospitalist Unit Admitted: Telemetry Referrals: SYDNIE LUNDBERG MD [Primary Care Provider] - Follow up as needed
[2017-05-16] MEDS ORDERED: NITROGLYCERIN 0.4 MG/TAB 25 TAB/BOTTLE SL ONE (08:16)
[2017-05-16 08:44] LABS: ABSOLUTE LYMPHOCYTES (AUTO) 1.6 10^3/uL (0.5-4.7); ABSOLUTE MONOCYTES (AUTO) 0.6 10^3/uL (0.1-1.4); ABSOLUTE NEUT (AUTO) 5.8 10^3/uL (1.7-8.2); BASOPHILS % (AUTO) 0.4 % (0-2); EOSINOPHILS % (AUTO) 0.5 % (0-6); HEMATOCRIT 37.5 % (37.9-51.0); HEMOGLOBIN 12.7 g/dL (13.5-17.0); LYMPHOCYTES % (AUTO) 19.7 % (13-45); MEAN CORPUSCULAR HEMOGLOBIN 32.7 pg (27.0-33.4); MEAN CORPUSCULAR HGB CONC 33.9 g/dL (32.0-36.0); MEAN CORPUSCULAR VOLUME 96 fl (80-97); MONOCYTES % (AUTO) 7.4 % (3-13); PLATELET COUNT 283 10^3/uL (150-450); RED BLOOD COUNT 3.89 10^6/uL (4.35-5.55); RED CELL DISTRIBUTION WIDTH 12.8 % (11.5-14.0); TOTAL CELLS COUNTED % (AUTO) 100 %
[2017-05-16 08:49] LABS: ALANINE AMINOTRANSFERASE 20 U/L (21-72); ALBUMIN 3.9 g/dL (3.5-5.0); ALKALINE PHOSPHATASE 48 U/L (38-126); ANION GAP 10 (5-19); ASPARTATE AMINO TRANSFERASE 19 U/L (17-59); BILIRUBIN,DIRECT 0.2 mg/dL (0.0-0.4); BILIRUBIN,TOTAL 0.4 mg/dL (0.2-1.3); BLOOD UREA NITROGEN 21 mg/dL (7-20); CARBON DIOXIDE 27 mmol/L (22-30); CHLORIDE 108 mmol/L (98-107); CREATINE KINASE 89 U/L (55-170); GLUCOSE 115 mg/dL (75-110); POTASSIUM 3.7 mmol/L (3.6-5.0); TOTAL PROTEIN 6.5 g/dL (6.3-8.2)
[2017-05-16 08:57] LABS: APPEARANCE,URINE CLEAR; BILIRUBIN,URINE NEGATIVE (NEGATIVE); COLOR,URINE YELLOW; GLUCOSE, URINE NEGATIVE (NEGATIVE); KETONES,URINE NEGATIVE (NEGATIVE); LEUKOCYTE ESTERASE,URINE NEGATIVE (NEGATIVE); NITRITE,URINE NEGATIVE (NEGATIVE); PROTEIN,URINE 30 mg/dL (NEGATIVE); URINE SPECIFIC GRAVITY 1.033
[2017-05-16 09:00] LABS: CREATINE KINASE MB 0.39 ng/mL (<4.55)
[2017-05-16 09:01] LABS: URINE AMPHETAMINES SCREEN NEGATIVE; URINE BARBITURATES SCREEN NEGATIVE; URINE BENZODIAZEPINES SCREEN NEGATIVE; URINE COCAINE SCREEN UNCONFIRMED POSITIVE; URINE MARIJUANA (THC) SCREEN UNCONFIRMED POSITIVE; URINE METHADONE SCREEN NEGATIVE; URINE PHENCYCLIDINE SCREEN NEGATIVE
[2017-05-16 09:06] LABS: TROPONIN I < 0.012 ng/mL
--- NOTE | 2017-05-16 09:58 | RADIOLOGY REPORT (SQ) ---
EXAM DESCRIPTION: CTA CHEST COMPLETED DATE/TIME: 05/16/2017 9:45 am REASON FOR STUDY: sob, chest pain COMPARISON: 11/05/2009 TECHNIQUE: CT scan of the chest performed using helical scanning technique with dynamic intravenous contrast injection. Images reviewed with lung, soft tissue and bone windows. Reconstructed coronal and sagittal MPR images reviewed. Additional 3 dimensional post-processing performed to develop Maximal Intensity Projection images (OK P). All images stored on PACS. All CT scanners at this facility use dose modulation, iterative reconstruction, and/or weight based d osing when appropriate to reduce radiation dose to as low as reasonably achievable (ALARA). [facility]: Dose Right [facility]: CareDose [facility]: Dose Right [facility]: Teradose 4D [facility]: [employer] CONTRAST TYPE AND DOSE: contrast/concentration: Isovue 370.00 mg/ml; Total Contrast Delivered: 63.0 ml; Total Saline Delivered: 80.0 ml Contrast bolus optimized for the pulmonary arteries. Not diagnostic for the aorta. RENAL FUNCTION: GFR > 60. RADIATION DOSE: CT Rad equipment meets quality standard of care and radiation dose reduction techniq ues were employed. CTDIvol: 14.5 - 19.8 mGy. DLP: 596 mGy-cm. . LIMITATIONS: None. FINDINGS: LUNGS AND PLEURA: No masses, infiltrates, pneumothorax. No pleural effusions, calcificati ons. AORTA AND GREAT VESSELS: Stable in size and contour. Contrast bolus not optimized for the aorta. HEART: Stable cardiomegaly. No pericardial effusion. No significant coronary artery calcifications. PULMONARY ARTERIES: No emboli visualized in the main pulmonary arteries or the segmental branches. HILAR AND MEDIASTINAL STRUCTURES: No identified masses or abnormal nodes. HARDWARE: None in the chest. UPPER ABDOMEN: Nonobstructing right renal calculus. No additional significant findings. Limited exa m. THYROID AND OTHER SOFT TISSUES: No masses. No adenopathy. BONES: No acute or significant finding. 3D MIPS: Confirm above findings. OTHER: No other significant finding. IMPRESSION: NO ACUTE INTRATHORACIC PROCESS IDENTIFIED. NO PULMONARY EMBOLI. NONOBSTRUCTING RIGHT RENAL CALCULUS PER COMMENT: Quality ID # [id number]: Final reports with documentation of one or more dose reduction techniques (e.g., Automated exposure control, adjustment of the mA and/or kV according to patient size, use of iterative reconstruction technique) TECHNICAL DOCUMENTATION: JOB ID: [id number] [facility] [employer]- All Rights Reserved
[2017-05-16] MEDS ORDERED: ONDANSETRON HCL INJ/PF 4 MG/2 ML SDV IV PRN (11:32)
[2017-05-16] MEDS ORDERED: ACETAMINOPHEN 325 MG TABLET PO PRN (11:32)
[2017-05-16] MEDS ORDERED: IPRATROPIUM/ALBUTEROL 0.5-2.5 MG/3 ML AMPUL NEB PRN (11:32)
[2017-05-16] MEDS ORDERED: MAGNESIUM HYDROXIDE SUSP 30 ML UDCUP PO PRN (11:32)
[2017-05-16] MEDS: OXYCODONE-ACETAMINOPHEN 5-325 MG TABLET PO PRN ×2 (12:39→18:34)
[2017-05-16 14:02] LABS: MAGNESIUM 2.2 mg/dL (1.6-2.3); PHOSPHORUS 2.8 mg/dL (2.5-4.5)
[2017-05-16 14:15] LABS: CREATINE KINASE MB 0.31 ng/mL (<4.55)
[2017-05-16 14:21] LABS: TROPONIN I < 0.012 ng/mL
--- NOTE | 2017-05-16 16:45 | PDOC H&P ---
History of Present Illness Admission Date/PCP: 05/16/17 11:24 SYDNIE LUNDBERG MD Patient complains of: chest pain History of Present Illness: ZEYNEP CASE is a 62 year old male presents from home with several day history of left sided chest pain, sharp, stabbing, fleeting lasting only a few seconds with asct'd SOA and Rt shoulder pain but no diaphoresis, N/V, DOW, jaw pain, dizziness, cough with phlegm, syncope or presyncope. He takes 81mg ASA daily and has long standing HTN. He also suffers from low back pain and was recently started on Percocet by his PCP who also is beginning the workup for an etiology. He reports running out of his percocets taking 2 at time every 4 hrs. He also admits to cocaine use last night and ongoing THC for relief of his back pain. he is requesting IV narcotics now. eval in ED so far is negative with no ischemic changes on EKG and negative TpI. Since his symptoms of chest pain preceded his cocaine use we were asked to admit for further eval and management. Past Medical History Cardiac Medical History: Reports: Hypertension Pulmonary Medical History: Reports: None Endocrine Medical History: Reports: None Renal/ Medical History: Reports: None Psychiatric Medical History: Reports: Depression Past Surgical History Past Surgical History: Reports: None Social History Information Source: Patient Smoking Status: Current Every Day Smoker Cigarettes Packs Per Day: 1 Cigars Per Day: 0 Pipes Per Day: 0 Number of Years Smokin Last Time Smoked: 05/16/2017 Frequency of Alcohol Use: Social Hx Recreational Drug Use: Yes Drugs: Cocaine, Marijuana Hx Prescription Drug Abuse: No - Advance Directive Resuscitation Status: Full Code Family History Family History: Hyperlipidemia, Hypertension. denies: Arthritis, CAD, COPD, CVA , DM, Malignancy, Thyroid Disfunction Parental Family History Reviewed: Yes Children Family History Reviewed: Yes Sibling(s) Family History Reviewed.: Yes Medication/Allergy Home Medications: Aspirin [Ecotrin 81 mg EC Tablet] 81 mg PO DAILY 05/16/17 Lisinopril [Prinivil] 20 mg PO DAILY 05/16/17 Oxycodone HCl/Acetaminophen [Percocet 10-325 mg Tablet] 2 tab PO Q4H PRN Allergies/Adverse Reactions: ibuprofen [From Motrin] Adverse Reaction (Verified 05/16/17 08:21) Vomiting tramadol Adverse Reaction (Verified 05/16/17 08:21) Vomiting Review of Systems All systems: reviewed and no additional remarkable complaints except as stated - all systrems reviewed, see above, remaining systems negative Physical Exam Vital Signs: Temp Pulse Resp BP Pulse Ox 97.5 F 62 18 159/84 H 98 05/16/17 14:00 05/16/17 14:00 05/16/17 14:00 05/16/17 14:00 05/16/17 14:00 Intake & Output 05/15/17 05/16/17 05/17/17 06:59 06:59 06:59 Weight 59.3 kg General appearance: PRESENT: mild distress - from his back pain, well- developed. ABSENT: well-nourished Head exam: PRESENT: atraumatic, normocephalic Eye exam: PRESENT: EOMI, PERRLA. ABSENT: scleral icterus Mouth exam: PRESENT: dry mucosa, neck supple Neck exam: PRESENT: full ROM. ABSENT: carotid bruit, JVD, lymphadenopathy, meningismus, tenderness, tracheal deviation Respiratory exam: PRESENT: clear to auscultation christelle, unlabored. ABSENT: accessory muscle use Cardiovascular exam: PRESENT: RRR. ABSENT: systolic murmur, tachycardia Pulses: PRESENT: normal carotid pulses, normal radial pulses - symmetric GI/Abdominal exam: PRESENT: normal bowel sounds, soft. ABSENT: tenderness Extremities exam: PRESENT: full ROM. ABSENT: calf tenderness, pedal edema Musculoskeletal exam: PRESENT: ambulatory, tenderness - along bilat paraspinal muscles which appear to be in spasm, other - straight leg raise difficult to assess, he was able to do it himself but resisted passive ROM due to pain and cramping Neurological exam: PRESENT: alert, awake, oriented to person, oriented to place , oriented to time, oriented to situation Psychiatric exam: PRESENT: appropriate affect, normal mood Skin exam: PRESENT: dry, warm Results Laboratory Results: 05/16/17 05/16/17 13:27 13:27 Phosphorus 2.8 Magnesium 2.2 TSH 0.28 L 05/16/17 05/16/17 05/16/17 13:27 13:27 13:27 Creatine Kinase 82 CK-MB (CK-2) 0.31 Troponin I < 0.012 NT-Pro-B Natriuret Pep 38 EKG Comments: NSR with nonspecific IVCD Impressions: Chest/Abdomen CTA 05/16/17 08:03 IMPRESSION: NO ACUTE INTRATHORACIC PROCESS IDENTIFIED. NO PULMONARY EMBOLI. NONOBSTRUCTING RIGHT RENAL CALCULUS PER Status: Image reviewed by me - agree with rads Assessment & Plan - Diagnosis (1) Chest pain Qualifiers: Chest pain type: unspecified Qualified Code(s): R07.9 - Chest pain, unspecified Is this a current diagnosis for this admission?: Yes Plan: admit for telemetry and further risk stratification with serial enzymes and with DILAN score of 3 will schedule cardiolyte stress test as he will not be able to walk on treadmill due to his back pain. I couldn't get a clear answer as to whether we can do stress testing this Thursday so I ordered the test and will f/u with cardio (2) HTN (hypertension) Is this a current diagnosis for this admission?: Yes Plan: continue ACEi and monitor for effect (3) Tobacco abuse Plan: tobacco cessation counseling but he is not interested at this time. (4) Cocaine abuse Is this a current diagnosis for this admission?: Yes Plan: repeatedly claims this is his first offense and would never do it again if someone would just treat his back pain then he wouldn't have to. I explained that we will not be giving IV narcotics and will limit the oral percocet as well as he is clearing demonstrating abuse behaviors and high risk for abuse and dependence. (5) Low back pain Qualifiers: Chronicity: unspecified Back pain laterality: bilateral Sciatica presence : without sciatica Qualified Code(s): M54.5 - Low back pain Is this a current diagnosis for this admission?: Yes Plan: defer to his PCP who has already begun the workup; there are no neurologic symptoms or worrisome findings on exam; in fact, seems to be muscle spasm. Ok to use dry heat and will begin PT if they are available this weekend. - Time Time Spent: 50 to 70 Minutes Medications reviewed and adjusted accordingly: Yes
[2017-05-16] MEDS ORDERED: DOCUSATE SODIUM 100 MG CAPSULE PO SCH (18:00)
[2017-05-16 21:09] LABS: CREATINE KINASE MB < 0.22 ng/mL (<4.55); TROPONIN I < 0.012 ng/mL
[2017-05-16] MEDS ORDERED: AMLODIPINE BESYLATE 10 MG TABLET PO ONE (23:00)
[2017-05-17] MEDS: OXYCODONE-ACETAMINOPHEN 5-325 MG TABLET PO PRN ×2 (00:14→04:23)
[2017-05-17] MEDS ORDERED: ENALAPRILAT DIHYDRATE INJ/PF 1.25 MG/1 ML SDV IV ONE (04:15)
[2017-05-17 04:43] VITALS: BP 173/85
[2017-05-17 05:33] LABS: CHOLESTEROL 119.57 mg/dL (0-200); TRIGLYCERIDES 123 mg/dL (<150)
[2017-05-17 05:44] LABS: DIRECT LDL 47 mg/dL (<100)
[2017-05-17] MEDS ORDERED: LISINOPRIL 10 MG TABLET PO SCH (10:00)
[2017-05-17] MEDS ORDERED: ENOXAPARIN SODIUM INJ 40 MG/0.4 ML DISP.SYRIN SUBCUT SCH (10:00)
--- NOTE | 2017-05-18 14:12 | PDOC DISCHARGE SUMMARY ---
General - Admit/Disc Date/PCP Admission Date/Primary Care Provider: 05/16/17 11:24 SYDNIE LUNDBERG MD Discharge Date: 05/17/17 - Additional Information Resuscitation Status: Full Code Home Medications: Aspirin [Ecotrin 81 mg EC Tablet] 81 mg PO DAILY 05/16/17 Lisinopril [Prinivil] 20 mg PO DAILY 05/16/17 Oxycodone HCl/Acetaminophen [Percocet 10-325 mg Tablet] 2 tab PO Q4H PRN History of Present Illness History of Present Illness: I did not get to see this patient. He was admitted by Dr. Henrry Shea. Is He is left AMA overnight on May 17, 2017 . ZEYNEP CASE is a 62 year old male presents from home with several day history of left sided chest pain, sharp, stabbing, fleeting lasting only a few seconds with asct'd SOA and Rt shoulder pain but no diaphoresis, N/V, DOW, jaw pain, dizziness, cough with phlegm, syncope or presyncope. He takes 81mg ASA daily and has long standing HTN. He also suffers from low back pain and was recently started on Percocet by his PCP who also is beginning the workup for an etiology. He reports running out of his percocets taking 2 at time every 4 hrs. He also admits to cocaine use last night and ongoing THC for relief of his back pain. he is requesting IV narcotics now. Eval in ED negative with no ischemic changes on EKG and negative TpI. Since his symptoms of chest pain preceded his cocaine use we were asked to admit for further eval and management. Hospital Course Hospital Course: The patient left AMA overnight. Physical Exam Vital Signs: Temp Pulse Resp BP Pulse Ox 97.8 F 58 L 15 173/85 H 97 05/17/17 04:42 05/17/17 04:42 05/17/17 04:42 05/17/17 04:42 05/17/17 04:42 Intake & Output 05/17/17 05/18/17 05/19/17 06:59 06:59 06:59 Intake Total 363 Balance 363 Weight 59.3 kg Results Laboratory Results: 05/16/17 05/16/17 05/16/17 13:27 13:27 13:27 Creatine Kinase 82 CK-MB (CK-2) 0.31 Troponin I < 0.012 NT-Pro-B Natriuret Pep 38 05/16/17 05/16/17 20:00 20:00 Creatine Kinase 73 CK-MB (CK-2) < 0.22 Troponin I < 0.012 NT-Pro-B Natriuret Pep Impressions: Chest/Abdomen CTA 05/16/17 08:03 IMPRESSION: NO ACUTE INTRATHORACIC PROCESS IDENTIFIED. NO PULMONARY EMBOLI. NONOBSTRUCTING RIGHT RENAL CALCULUS PER Plan Time Spent: Less than 30 Minutes
== END 2017-05-17 06:23 | disposition left against medical advice (07) | DRG 313 ==
LOC: ER 07:30 → EH 11:24 → OBSVTOIN 11:24 → 5 13:42
PROVIDERS: ADMIT Internal Medicine; ATTEND Internal Medicine
DX: R07.9 Chest pain, unspecified (principal); I10 Essential (primary) hypertension; F14.10 Cocaine abuse, uncomplicated; M54.5 Low back pain; Z79.82 Long term (current) use of aspirin; Z79.899 Other long term (current) drug therapy; F17.210 Nicotine dependence, cigarettes, uncomplicated; Z88.8 Allergy status to other drugs, medicaments and biological substances
CPT/HCPCS: 36415; 71275; 80053; 80061; 80307; 81001; 82550; 82553; 83036; 83735; 83880; 84100; 84443; 84484; 85025; 93005; 93010; 99285; J3490

== ENCOUNTER 2017-07-02 06:36 | Emergency (ER) | payer MEDICAID ==
[2017-07-02 08:17] LABS: APPEARANCE,URINE CLEAR; BILIRUBIN,URINE NEGATIVE (NEGATIVE); COLOR,URINE YELLOW; GLUCOSE, URINE NEGATIVE (NEGATIVE); KETONES,URINE NEGATIVE (NEGATIVE); LEUKOCYTE ESTERASE,URINE NEGATIVE (NEGATIVE); NITRITE,URINE NEGATIVE (NEGATIVE); PROTEIN,URINE 30 mg/dL (NEGATIVE); URINE SPECIFIC GRAVITY 1.026
[2017-07-02 09:24] LABS: HEMATOCRIT 39.8 % (37.9-51.0); HEMOGLOBIN 13.4 g/dL (13.5-17.0); MEAN CORPUSCULAR HEMOGLOBIN 32.4 pg (27.0-33.4); MEAN CORPUSCULAR HGB CONC 33.8 g/dL (32.0-36.0); MEAN CORPUSCULAR VOLUME 96 fl (80-97); PLATELET COUNT 249 10^3/uL (150-450); RED BLOOD COUNT 4.15 10^6/uL (4.35-5.55); RED CELL DISTRIBUTION WIDTH 12.3 % (11.5-14.0); WHITE BLOOD COUNT 6.9 10^3/uL (4.0-10.5)
--- NOTE | 2017-07-02 09:46 | RADIOLOGY REPORT (SQ) ---
EXAM DESCRIPTION: CT LTD RENAL STONE PROTOCOL ON COMPLETED DATE/TIME: 07/02/2017 9:12 am REASON FOR STUDY: hematuria COMPARISON: None. TECHNIQUE: CT scan of the abdomen and pelvis performed without intravenous or oral contrast. Images reviewed with lung, soft tissue, and bone windows. Reconstructed coronal and sagittal MPR images revi ewed. All images stored on PACS. All CT scanners at this facility use dose modulation, iterative reconstruction, and/or weight based d osing when appropriate to reduce radiation dose to as low as reasonably achievable (ALARA). [facility]: Dose Right [facility]: CareDose [facility]: Dose Right [facility]: Teradose 4D [facility]: [employer] RADIATION DOSE: CT Rad equipment meets quality standard of care and radiation dose reduction techniq ues were employed. CTDIvol: 4.8 mGy. DLP: 238 mGy-cm.mGy. LIMITATIONS: None. FINDINGS: LOWER CHEST: Chronic scarring in lung bases. LIVER: No abnormality seen. SPLEEN: No abnormality seen. ADRENALS: Prominent right adrenal mass consistent with incidental adrenal adenoma. No abnormality o f the left adrenal. PANCREAS: No abnormality seen. . GALLBLADDER: No abnormality seen. RIGHT KIDNEY AND URETER: Nonobstructive calculus upper pole right kidney. No evidence of right urete ral calculus. LEFT KIDNEY AND URETER: No abnormality of the left kidney. AORTA AND RETROPERITONEUM: No aneurysm. No retroperitoneal masses or adenopathy. BOWEL AND PERITONEAL CAVITY: Constipation. APPENDIX: Normal. PELVIS, BLADDER, AND ABDOMINAL WALL: Urinary bladder: Decompressed. Prostate ; mild prostate megaly . BONES: Lumbar spondylosis. IMPRESSION: 1. Nonobstructive calculus upper pole right kidney. Incidental right adrenal adenoma. Otherwise, normal noncontrast CT abdomen and pelvis. COMMENT: Quality ID # [id number]: Final reports with documentation of one or more dose reduction techniques (e.g., Automated exposure control, adjustment of the mA and/or kV according to patient size, use of iterative reconstruction technique) TECHNICAL DOCUMENTATION: JOB ID: [id number]- All Rights Reserved
[2017-07-02 09:47] LABS: ANION GAP 7 (5-19); BLOOD UREA NITROGEN 23 mg/dL (7-20); CALCIUM 10.2 mg/dL (8.4-10.2); CARBON DIOXIDE 28 mmol/L (22-30); CHLORIDE 106 mmol/L (98-107); GLUCOSE 82 mg/dL (75-110); POTASSIUM 4.1 mmol/L (3.6-5.0); SODIUM 141.2 mmol/L (137-145)
--- NOTE | 2017-07-02 11:06 | ER Document Report ---
ED General - General Chief Complaint: Urinary Problem Stated Complaint: BLOOD IN URINE Time Seen by Provider: 07/02/17 08:37 TRAVEL OUTSIDE OF THE [place] IN LAST 30 DAYS: No - HPI Patient complains to provider of: Hematuria Notes: Patient coming in for hematuria for the last 4 days. Patient states no trauma no history of hematuria in the past. Patient is a smoker. Patient denies any head pain chest pain abdominal pain denies any nausea vomiting fevers chills diarrhea denies any flank pain. Patient resting comfortably upon my evaluation. - Related Data Allergies/Adverse Reactions: ibuprofen [From Motrin] Adverse Reaction (Verified 05/16/17 08:21) Vomiting tramadol Adverse Reaction (Verified 05/16/17 08:21) Vomiting Past Medical History - Social History Smoking Status: Current Every Day Smoker Chew tobacco use (# tins/day): No Frequency of alcohol use: Occasional Drug Abuse: None Family History: Hyperlipidemia, Hypertension. denies: Arthritis, CAD, COPD, CVA , DM, Malignancy, Thyroid Disfunction Patient has suicidal ideation: No Patient has homicidal ideation: No - Past Medical History Cardiac Medical History: Reports: Hx Hypertension Renal/ Medical History: Denies: Hx Peritoneal Dialysis Psychiatric Medical History: Reports: Hx Depression Past Surgical History: Reports: Hx Oral Surgery - Immunizations Immunizations up to date: Yes Hx Diphtheria, Pertussis, Tetanus Vaccination: Yes - 2011 Hx Pneumococcal Vaccination: 03/29/13 Review of Systems - Review of Systems Constitutional: No symptoms reported EENT: No symptoms reported Cardiovascular: No symptoms reported Respiratory: No symptoms reported Gastrointestinal: No symptoms reported Genitourinary: Hematuria Male Genitourinary: No symptoms reported Musculoskeletal: No symptoms reported Skin: No symptoms reported Hematologic/Lymphatic: No symptoms reported Neurological/Psychological: No symptoms reported -: Yes All other systems reviewed and negative Physical Exam - Vital signs Vitals: Temp Pulse Resp BP Pulse Ox 98.1 F 79 16 108/85 98 07/02/17 06:47 07/02/17 06:47 07/02/17 06:47 07/02/17 06:47 07/02/17 06:47 Interpretation: Normal - General General appearance: Appears well, Alert - HEENT Head: Normocephalic, Atraumatic Eyes: Normal Pupils: PERRL - Respiratory Respiratory status: No respiratory distress Chest status: Nontender Breath sounds: Normal Chest palpation: Normal - Cardiovascular Rhythm: Regular Heart sounds: Normal auscultation Murmur: No - Abdominal Inspection: Normal Distension: No distension Bowel sounds: Normal Tenderness: Nontender Organomegaly: No organomegaly - Back Back: Normal, Nontender - Extremities General upper extremity: Normal inspection, Nontender, Normal color, Normal ROM , Normal temperature General lower extremity: Normal inspection, Nontender, Normal color, Normal ROM , Normal temperature, Normal weight bearing. No: Em's sign - Neurological Neuro grossly intact: Yes Cognition: Normal Orientation: AAOx4 [place] Coma Scale Eye Opening: Spontaneous [place] Coma Scale Verbal: Oriented [place] Coma Scale Motor: Obeys Commands [place] Coma Scale Total: 15 Speech: Normal Motor strength normal: LUE, RUE, LLE, RLE Sensory: Normal - Psychological Associated symptoms: Normal affect, Normal mood - Skin Skin Temperature: Warm Skin Moisture: Dry Skin Color: Normal Course - Re-evaluation Re-evalutation: 07/02/17 15:11 Laboratory studies showed slight anemia with need for transfusion no signs of renal insufficiency. CAT scan does not show any signs of masses or renal stones. Explained the patient with a history of smoking will be concerned about possible bladder cancer patient is to follow-up with PCP for further evaluation. Patient agrees will discharge home social work has been involved in his care and will establish the patient an appointment at the clinic. - Vital Signs Vital signs: Temp Pulse Resp BP Pulse Ox 98.1 F 58 L 16 178/87 H 100 07/02/17 06:47 07/02/17 11:14 07/02/17 06:47 07/02/17 11:14 07/02/17 11:14 - Laboratory Result Diagrams: 07/02/17 09:13 07/02/17 09:13 Laboratory results interpreted by me: 07/02/17 07/02/17 07/02/17 07:54 09:13 09:13 RBC 4.15 L Hgb 13.4 L BUN 23 H Urine Protein 30 H Urine Blood MODERATE H Urine Urobilinogen 4.0 H Discharge - Discharge Clinical Impression: Hematuria Qualifiers: Hematuria type: unspecified type Qualified Code(s): R31.9 - Hematuria, unspecified Disposition: HOME, SELF-CARE Instructions: Hematuria ([facility]) Additional Instructions: Your evaluation does not show any signs of anemia or renal failure however a CAT scan that showed a kidney stone in the kidneys. This would not cause any pain that can cause hematuria or other causes of hematuria such as cancer which she right wrist forcing to smoke. I would highly recommend she follow-up with your primary care physician for further evaluation. Take Tylenol and Motrin for pain control. Forms: Return to Work Referrals: REILLY NIEVES MD [Primary Care Provider] - Follow up as needed
[2017-07-02 11:16] VITALS: BP 178/87
== END 2017-07-02 11:16 | disposition home or self-care (01) ==
LOC: ER 06:36
DX: R31.9 Hematuria, unspecified (principal); F17.200 Nicotine dependence, unspecified, uncomplicated
CPT/HCPCS: 36415; 76380; 80048; 81001; 85027; 99284

== ENCOUNTER → 2018-01-07 | Outpatient (CLI) | payer MEDICAID ==
--- NOTE | 2018-01-07 10:22 | RADIOLOGY REPORT (SQ) ---
EXAM DESCRIPTION: CHEST 2 VIEWS COMPLETED DATE/TIME: 01/07/2018 9:48 am REASON FOR STUDY: COUGH COMPARISON: Two-view chest 12/19/2012 CT angio chest 05/16/2017 EXAM PARAMETERS: NUMBER OF VIEWS: two views TECHNIQUE: Digital Frontal and Lateral radiographic views of the chest acquired. RADIATION DOSE: NA LIMITATIONS: none FINDINGS: LUNGS AND PLEURA: No opacities, masses or pneumothorax. No pleural effusion. MEDIASTINUM AND HILAR STRUCTURES: No masses or contour abnormalities. HEART AND VASCULAR STRUCTURES: Heart normal size. No evidence for failure. BONES: No acute findings. HARDWARE: None in the chest. OTHER: No other significant finding. IMPRESSION: NO ACUTE RADIOGRAPHIC FINDING IN THE CHEST. TECHNICAL DOCUMENTATION: JOB ID: [id number] 2018 [employer]- All Rights Reserved Reading location - IP/workstation name: [email or web address]
== END ==
LOC: RAD 09:33
PROVIDERS: ATTEND Family Medicine
DX: R05 Cough (principal)
CPT/HCPCS: 71046

== ENCOUNTER 2018-01-11 09:10 | Emergency (ER) | payer MEDICAID ==
[2018-01-11 09:22] VITALS: BP 158/87
[2018-01-11] MEDS ORDERED: HYDROCODONE/ACETAMINOPHEN 5-325 MG TABLET PO ONE (10:32)
--- NOTE | 2018-01-11 10:37 | ER Document Report ---
ED Neck/Back Problem - General Chief Complaint: Back Pain Stated Complaint: BACK PAIN Time Seen by Provider: 01/11/18 10:02 Notes: Patient came to the emergency room requesting refill of his oxycodone for chronic back pain. He said he is primary doctor has moved out of the area. He has had these back pain for years. He denies any fall injury or any other problems. Patient said that his only the narcotics now works for his back pain. There is no change in pattern to the back pain. He has run out of his medication and he wants a refill. TRAVEL OUTSIDE OF THE [place] IN LAST 30 DAYS: No - HPI Onset: Other - Chronic back pain Onset: Chronic Timing: Waxing and waning Severity: Moderate Pain Level: 4 Recent injury: No Associated symptoms: None Exacerbated by: Nothing Relieved by: Other - Narcotic pain medication Similar symptoms previously: Yes Recently seen / treated by doctor: No - Related Data Allergies/Adverse Reactions: ibuprofen [From Motrin] Adverse Reaction (Verified 05/16/17 08:21) Vomiting tramadol Adverse Reaction (Verified 05/16/17 08:21) Vomiting Past Medical History - Social History Smoking Status: Current Every Day Smoker Frequency of alcohol use: None Drug Abuse: Marijuana Family History: Hyperlipidemia, Hypertension. denies: Arthritis, CAD, COPD, CVA , DM, Malignancy, Thyroid Disfunction Patient has suicidal ideation: No Patient has homicidal ideation: No - Past Medical History Cardiac Medical History: Reports: Hx Hypertension Renal/ Medical History: Denies: Hx Peritoneal Dialysis Psychiatric Medical History: Reports: Hx Depression Past Surgical History: Reports: Hx Oral Surgery - Immunizations Immunizations up to date: Yes Hx Diphtheria, Pertussis, Tetanus Vaccination: Yes - 2011 Hx Pneumococcal Vaccination: 03/29/13 Review of Systems - Review of Systems Constitutional: denies: Chills, Fever EENT: No symptoms reported Cardiovascular: denies: Chest pain, Palpitations Respiratory: No symptoms reported Gastrointestinal: No symptoms reported Genitourinary: No symptoms reported Male Genitourinary: No symptoms reported Musculoskeletal: Back pain - Chronic back pain which has been ongoing for years. Skin: No symptoms reported Hematologic/Lymphatic: No symptoms reported Neurological/Psychological: No symptoms reported -: Yes All other systems reviewed and negative Physical Exam - Vital signs Vitals: Temp Pulse Resp BP Pulse Ox 97.5 F 72 18 158/87 H 97 08/20/18 09:20 01/11/18 09:20 01/11/18 09:20 01/11/18 09:20 01/11/18 09:20 - General General appearance: Appears well, Alert In distress: None - Respiratory Respiratory status: No respiratory distress Chest status: Nontender Breath sounds: Normal Chest palpation: Normal - Cardiovascular Rhythm: Regular Heart sounds: Normal auscultation Murmur: No - Abdominal Inspection: Normal Distension: No distension Bowel sounds: Normal Tenderness: Nontender Organomegaly: No organomegaly - Back Back: Normal, Nontender - Extremities General upper extremity: Normal inspection, Nontender, Normal color, Normal ROM , Normal temperature General lower extremity: Normal inspection, Nontender, Normal color, Normal ROM , Normal temperature, Normal weight bearing. No: Em's sign - Neurological Neuro grossly intact: Yes Cognition: Normal Orientation: AAOx4 Lyn[place] Coma Scale Eye Opening: Spontaneous [place] Coma Scale Verbal: Oriented [place] Coma Scale Motor: Obeys Commands Lyndsay Coma Scale Total: 15 Speech: Normal Motor strength normal: LUE, RUE, LLE, RLE Sensory: Normal - Psychological Associated symptoms: Normal affect, Normal mood - Skin Skin Temperature: Warm Skin Moisture: Dry Skin Color: Normal Course - Vital Signs Vital signs: Temp Pulse Resp BP Pulse Ox 97.5 F 72 18 158/87 H 97 01/11/18 09:20 01/11/18 09:20 01/11/18 09:20 01/11/18 09:20 01/11/18 09:20 Discharge - Discharge Clinical Impression: History of narcotic use, Narcotic addiction Chronic back pain Qualifiers: Back pain location: low back pain Back pain laterality: unspecified Sciatica presence: without sciatica Qualified Code(s): M54.5 - Low back pain Condition: Stable Disposition: HOME, SELF-CARE Instructions: Low Back Pain ([facility]) Additional Instructions: Please follow-up with Dr. Reina this morning. Return to the emergency room if you condition worsens. Referrals: REILLY NIEVES MD [Primary Care Provider] - Follow up as needed JASE REINA MD [ACTIVE STAFF] - Follow up as needed
== END 2018-01-11 11:04 | disposition home or self-care (01) ==
LOC: ER 09:10
DX: G89.29 Other chronic pain (principal); M54.5 Low back pain; F11.20 Opioid dependence, uncomplicated; F17.200 Nicotine dependence, unspecified, uncomplicated; I10 Essential (primary) hypertension
CPT/HCPCS: 99283

== ENCOUNTER 2018-02-06 12:18 | Emergency (ER) | payer MEDICAID ==
[2018-02-06] MEDS ORDERED: ASPIRIN 81 MG TABLET, CHEWABLE PO ONE (12:58)
[2018-02-06] MEDS ORDERED: NITROGLYCERIN 0.4 MG/TAB 25 TAB/BOTTLE SL ONE (12:59)
--- NOTE | 2018-02-06 13:01 | ER Document Report ---
ED Medical Screen (RME) - General Chief Complaint: Chest Pain > 30 Stated Complaint: CHEST PAIN, BACK PAIN Time Seen by Provider: 02/06/18 12:50 Mode of Arrival: Ambulatory Information source: Patient Notes: Patient complained of chest pain which started this morning. He also complained of lower back pain. He denies any abdominal pain nausea vomiting. I have greeted and performed a rapid initial assessment of this patient. A comprehensive ED assessment and evaluation of the patient, analysis of test results and completion of the medical decision making process will be conducted by additional ED providers. TRAVEL OUTSIDE OF THE [place] IN LAST 30 DAYS: No - Related Data Allergies/Adverse Reactions: ibuprofen [From Motrin] Adverse Reaction (Verified 02/06/18 12:19) Vomiting tramadol Adverse Reaction (Verified 02/06/18 12:19) Vomiting Past Medical History - Social History Chew tobacco use (# tins/day): No Frequency of alcohol use: None Drug Abuse: None - Past Medical History Cardiac Medical History: Reports: Hx Hypertension Renal/ Medical History: Denies: Hx Peritoneal Dialysis Psychiatric Medical History: Reports: Hx Depression Past Surgical History: Reports: Hx Oral Surgery - Immunizations Immunizations up to date: Yes Hx Diphtheria, Pertussis, Tetanus Vaccination: Yes - 2011 History of Influenza Vaccine for 02/2017 - 07/2017 Season: Yes Influenza Administration Date for 02/2017 - 07/2017 Season: 06/04/16 Physical Exam - Vital signs Vitals: Temp Pulse Resp BP Pulse Ox 97.3 F 67 19 144/90 H 99 02/06/18 12:32 02/06/18 12:32 02/06/18 12:32 02/06/18 12:32 02/06/18 12:32 Course - Vital Signs Vital signs: Temp Pulse Resp BP Pulse Ox 97.3 F 67 19 144/90 H 99 02/06/18 12:32 02/06/18 12:32 02/06/18 12:32 02/06/18 12:32 02/06/18 12:32 Doctor's Discharge - Discharge Referrals: REILLY NIEVES MD [Primary Care Provider] - Follow up as needed
--- NOTE | 2018-02-06 13:36 | RADIOLOGY REPORT (SQ) ---
EXAM DESCRIPTION: CHEST SINGLE VIEW COMPLETED DATE/TIME: 02/06/2018 1:26 pm REASON FOR STUDY: Chest pain COMPARISON: 01/07/2018 EXAM PARAMETERS: NUMBER OF VIEWS: One view. TECHNIQUE: Single frontal radiographic view of the chest acquired. RADIATION DOSE: NA LIMITATIONS: None. FINDINGS: LUNGS AND PLEURA: No opacities, masses or pneumothorax. No pleural effusion. MEDIASTINUM AND HILAR STRUCTURES: No masses. Contour normal. HEART AND VASCULAR STRUCTURES: Heart normal in size. Normal vasculature. BONES: No acute findings. HARDWARE: None in the chest. OTHER: No other significant finding. IMPRESSION: NO ACUTE RADIOGRAPHIC FINDING IN THE CHEST. TECHNICAL DOCUMENTATION: JOB ID: [id number] [employer]- All Rights Reserved Reading location - IP/workstation name: [email or web address]
[2018-02-06 14:13] LABS: ABSOLUTE EOSINOPHILS # (AUTO) 0.1 10^3/uL (0.0-0.6); ABSOLUTE MONOCYTES (AUTO) 0.5 10^3/uL (0.1-1.4); ABSOLUTE NEUT (AUTO) 3.9 10^3/uL (1.7-8.2); BASOPHILS % (AUTO) 0.7 % (0-2); EOSINOPHILS % (AUTO) 1.1 % (0-6); HEMATOCRIT 37.7 % (37.9-51.0); HEMOGLOBIN 12.7 g/dL (13.5-17.0); LYMPHOCYTES % (AUTO) 30.7 % (13-45); MEAN CORPUSCULAR HEMOGLOBIN 32.2 pg (27.0-33.4); MEAN CORPUSCULAR HGB CONC 33.6 g/dL (32.0-36.0); MEAN CORPUSCULAR VOLUME 96 fl (80-97); MONOCYTES % (AUTO) 8.1 % (3-13); PLATELET COUNT 268 10^3/uL (150-450); RED BLOOD COUNT 3.93 10^6/uL (4.35-5.55); RED CELL DISTRIBUTION WIDTH 13.1 % (11.5-14.0); SEGMENTED NEUTROPHILS % (AUTO) 59.4 % (42-78); TOTAL CELLS COUNTED % (AUTO) 100 %; WHITE BLOOD COUNT 6.5 10^3/uL (4.0-10.5)
[2018-02-06 14:22] LABS: INTERNATIONAL RATION (INR) 0.97; PROTHROMBIN TIME 13.4 SEC (11.4-15.4)
--- NOTE | 2018-02-06 15:49 | ER Document Report ---
ED General - General Chief Complaint: Chest Pain > 30 Stated Complaint: CHEST PAIN, BACK PAIN Time Seen by Provider: 02/06/18 12:50 Mode of Arrival: Ambulatory TRAVEL OUTSIDE OF THE [place] IN LAST 30 DAYS: No - HPI Patient complains to provider of: chest pain Onset: Other - Related Data Allergies/Adverse Reactions: ibuprofen [From Motrin] Adverse Reaction (Verified 02/06/18 12:19) Vomiting tramadol Adverse Reaction (Verified 02/06/18 12:19) Vomiting Past Medical History - General Information source: Patient - Social History Smoking Status: Current Some Day Smoker Chew tobacco use (# tins/day): No Frequency of alcohol use: None Drug Abuse: None Family History: Hyperlipidemia, Hypertension. denies: Arthritis, CAD, COPD, CVA , DM, Malignancy, Thyroid Disfunction Patient has suicidal ideation: No Patient has homicidal ideation: No - Past Medical History Cardiac Medical History: Reports: Hx Hypertension Renal/ Medical History: Denies: Hx Peritoneal Dialysis Psychiatric Medical History: Reports: Hx Depression Past Surgical History: Reports: Hx Oral Surgery - Immunizations Immunizations up to date: Yes Hx Diphtheria, Pertussis, Tetanus Vaccination: Yes - 2011 Hx Pneumococcal Vaccination: 03/29/13 Review of Systems - Review of Systems -: Yes All other systems reviewed and negative Physical Exam - Vital signs Vitals: Temp Pulse Resp BP Pulse Ox 97.3 F 67 19 144/90 H 99 02/06/18 12:32 02/06/18 12:32 02/06/18 12:32 02/06/18 12:32 02/06/18 12:32 - General General appearance: Appears well In distress: None - HEENT Head: Normocephalic Eyes: Normal Conjunctiva: Normal Cornea: Normal Extraocular movements intact: Yes Eyelashes: Normal - Respiratory Respiratory status: No respiratory distress Chest status: Nontender Breath sounds: Normal Chest palpation: Normal - Cardiovascular Rhythm: Regular Heart sounds: Normal auscultation Murmur: Yes - Abdominal Inspection: Normal Distension: No distension Tenderness: Nontender Organomegaly: No organomegaly - Back Back: Normal - Extremities General upper extremity: Normal inspection, Nontender, Normal ROM, Normal strength General lower extremity: Normal inspection, Nontender, Normal ROM, Normal strength - Neurological Neuro grossly intact: Yes Cognition: Normal Orientation: AAOx4 [place] Coma Scale Eye Opening: Spontaneous Lyndsay Coma Scale Verbal: Oriented Lyn[place]ay Coma Scale Motor: Obeys Commands [place] Coma Scale Total: 15 Speech: Normal Cranial nerves: Normal Motor strength normal: LUE, RUE, LLE, RLE - Psychological Associated symptoms: Normal affect Course - Re-evaluation Re-evalutation: 02/06/18 17:43 62-year-old man who presents with atypical chest pain. He is a heart score of 3 at this time given risk factors and age, is in unchanged EKG negative troponin. He does note that he is a smoker at this time is had similar episodes in the past none of which have been diagnosed as anything in particular. On examination he is well appearing overall, is a nonfocal examination states primarily he is hungry. We will plan for the patient undergo discharge for follow-up with primary physician. Do not believe that this represents at this time dissection, PE, acute CT. Patient's troponin was drawn greater than 3 hours after initial presentation essentially at his second troponin. We will plan for discharge with return precautions - Vital Signs Vital signs: Temp Pulse Resp BP Pulse Ox 97.3 F 67 19 144/90 H 99 02/06/18 12:32 02/06/18 12:32 02/06/18 12:32 02/06/18 12:32 02/06/18 12:58 - Laboratory Result Diagrams: 02/06/18 14:00 02/06/18 14:00 Laboratory results interpreted by me: 02/06/18 14:00 RBC 3.93 L Hgb 12.7 L Hct 37.7 L Discharge - Discharge Clinical Impression: Chest pain Qualifiers: Chest pain type: unspecified Qualified Code(s): R07.9 - Chest pain, unspecified HTN (hypertension) Qualifiers: Hypertension type: unspecified Qualified Code(s): I10 - Essential (primary) hypertension Condition: Good Disposition: HOME, SELF-CARE Instructions: Upper Respiratory Illness ([facility]), Chest Pain of Unclear Cause ([facility] ) Additional Instructions: You were seen today in the emergency department for your chest pain, you had an evaluation including a physical exam as well as EKG. Your EKG did not show an obvious injury. You did not have any obvious damage to your heart on evaluation. In case of worsening chest pain you should return to the emergency room. You should stop smoking. Forms: Elevated Blood Pressure Referrals: REILLY NIEVES MD [NO LOCAL MD] - Follow up as needed
[2018-02-06 16:34] LABS: ALANINE AMINOTRANSFERASE 21 U/L (21-72); ALBUMIN 3.1 g/dL (3.5-5.0); ALKALINE PHOSPHATASE 35 U/L (38-126); ASPARTATE AMINO TRANSFERASE 17 U/L (17-59); BILIRUBIN,DIRECT 0.3 mg/dL (0.0-0.4); BILIRUBIN,TOTAL 0.6 mg/dL (0.2-1.3); BLOOD UREA NITROGEN 18 mg/dL (7-20); CALCIUM 8.2 mg/dL (8.4-10.2); CREATINE KINASE 76 U/L (55-170); GLUCOSE 70 mg/dL (75-110); POTASSIUM 3.5 mmol/L (3.6-5.0); TOTAL PROTEIN 5.7 g/dL (6.3-8.2)
[2018-02-06 16:46] LABS: CREATINE KINASE MB 0.31 ng/mL (<4.55)
[2018-02-06 16:47] LABS: TROPONIN I < 0.012 ng/mL
[2018-02-06 16:51] LABS: ANION GAP 5 (5-19); CARBON DIOXIDE 25 mmol/L (22-30); CHLORIDE 111 mmol/L (98-107); SODIUM 141.3 mmol/L (137-145)
[2018-02-06] MEDS ORDERED: TRAMADOL HCL 50 MG TABLET PO ONE (18:04)
[2018-02-06 18:09] VITALS: BP 140/72
--- NOTE | 2018-02-07 09:33 | EKG REPORT ---
SEVERITY:- ABNORMAL ECG - SINUS RHYTHM NONSPECIFIC INTRAVENTRICULAR CONDUCTION DELAY : Confirmed by: Miriam Frazier 07-Feb-2018 09:32:59
== END 2018-02-06 18:15 | disposition home or self-care (01) ==
LOC: ER 12:18
DX: R07.9 Chest pain, unspecified (principal); I10 Essential (primary) hypertension; M54.9 Dorsalgia, unspecified; F17.200 Nicotine dependence, unspecified, uncomplicated
CPT/HCPCS: 93005; 99285; 36415; 82553; 82550; 85025; 85610; 80053; 84484; 71045; 93010; J3490

== ENCOUNTER 2019-06-13 07:47 | Emergency (ER) | payer MEDICARE, MEDICAID ==
[2019-06-13 07:59] VITALS: BP 172/101
--- NOTE | 2019-06-13 08:47 | ER Document Report ---
HPI - HPI Time Seen by Provider: 06/13/19 08:38 Pain Level: 3 Context: Patient is a 64-year-old male with a history of chronic leg pain and hypertension who presents to the emergency department for an inquiry to have his lisinopril refilled. He has been out of his lisinopril for the past 3 weeks. Patient states that he sees Dr. Hernández and attempted to go to his office today, but due to the holiday, he was unable to get into the office. Patient states that he does not want any labs drawn at this time. He just would like his lisinopril filled. - CONSTITUTIONAL Constitutional: DENIES: Fever, Chills - EENT EENT: DENIES: Sore Throat - NEURO Neurology: DENIES: Headache, Weakness, Vision blurred - CARDIOVASCULAR Cardiovascular: DENIES: Chest pain - RESPIRATORY Respiratory: DENIES: Trouble Breathing, Coughing - GASTROINTESTINAL Gastrointestinal: DENIES: Abdominal Pain, Nausea, Patient vomiting - REPRODUCTIVE Reproductive: DENIES: : - MUSCULOSKELETAL Musculoskeletal: REPORTS: Extremity pain - Chronic leg pain. DENIES: Swelling - DERM Skin Color: Normal Skin Problems: None Past Medical History - General Information source: Patient - Social History Smoking Status: Current Every Day Smoker Family History: Hyperlipidemia, Hypertension. denies: Arthritis, CAD, COPD, CVA, DM, Malignancy, Thyroid Disfunction Patient has suicidal ideation: No Patient has homicidal ideation: No - Past Medical History Cardiac Medical History: Reports: Hx Hypertension Renal/ Medical History: Denies: Hx Peritoneal Dialysis Psychiatric Medical History: Reports: Hx Depression Past Surgical History: Reports: Hx Oral Surgery - Immunizations Immunizations up to date: Yes Hx Diphtheria, Pertussis, Tetanus Vaccination: Yes - 2011 Hx Pneumococcal Vaccination: 03/29/13 Vertical Provider Document - CONSTITUTIONAL Agree With Documented VS: Yes Exam Limitations: No Limitations General Appearance: No Apparent Distress - INFECTION CONTROL TRAVEL OUTSIDE OF THE [place] IN LAST 30 DAYS: No - HEENT HEENT: Atraumatic, Normocephalic, PERRLA - NECK Neck: Normal Inspection, Supple - RESPIRATORY Respiratory: Breath Sounds Normal, No Respiratory Distress - CARDIOVASCULAR Cardiovascular: Regular Rate, Regular Rhythm Pulses: Normal: Radial - MUSCULOSKELETAL/EXTREMETIES Musculoskeletal/Extremeties: FROM - NEURO Level of Consciousness: Awake, Alert, Appropriate Motor/Sensory: No Motor Deficit, No Sensory Deficit - DERM Integumentary: Warm, Dry, No Rash Course - Re-evaluation Re-evalutation: 06/13/19 08:46 Due to the patient not wanting any labs drawn, I highly suggested that he see his primary care provider first thing in the morning tomorrow. We will refill his lisinopril. He is in agreement with this plan. She denies any headache, shortness of breath, difficulty breathing, chest pain, or any other symptoms. He states that he has leg pain, but is chronic. I have a very low suspicion for any life-threatening etiology at this time. Follow-up precautions were given. Verbal discharge instructions were given to the patient. They verbalized understanding. They are stable for discharge. - Vital Signs Vital signs: Temp Pulse Resp BP Pulse Ox 97.5 F 74 18 172/101 H 97 06/13/19 07:55 06/13/19 07:55 06/13/19 07:55 06/13/19 07:55 06/13/19 07:55 Discharge - Discharge Clinical Impression: Tobacco abuse, Essential hypertension Condition: Stable Disposition: HOME, SELF-CARE Instructions: Angiotensin Converting Enzyme Inhibitor Medication ([facility]), High Blood Pressure ([facility]), Hydrochlorothiazide ([facility]) Additional Instructions: You were seen today in the emergency department for a blood pressure medication refill. You have 2 weeks worth of your medication. Please follow-up with your primary care provider tomorrow in regards to this visit. If you develop any new weakness, shortness of breath, difficulty breathing, chest pain, or any other symptoms, please return to the emergency department immediately. Prescriptions: Lisinopril/Hydrochlorothiazide [Lisinopril-Hctz 20-12.5 mg Tab] 1 each PO DAILY #14 tablet Forms: Smoking Cessation Education Referrals: RYAN HERNÁNDEZ MD [Primary Care Provider] - Follow up tomorrow
== END 2019-06-13 08:55 | disposition home or self-care (01) ==
LOC: ER 07:47
DX: M79.606 Pain in leg, unspecified (principal); I10 Essential (primary) hypertension; F17.200 Nicotine dependence, unspecified, uncomplicated
CPT/HCPCS: 99283